=== PATIENT | male | born 1965 | race Caucasian/White ===

== ENCOUNTER 2021-05-22 12:25 | Emergency (ER) | payer OTHER ==
[2021-05-22 14:30] LABS: BASOPHIL 1.1 % (0-2); EOSINOPHIL 1.4 % (0-5); HCT 45.5 % (42.0-52.0); HGB 15.4 g/dl (13.2-18.0); LYMPHOCYTE 34.1 % (15-48); MCH 30.6 pg (25.0-31.0); MCHC 33.8 g/dL (32.0-36.0); MCV 90.3 fL (78.0-100.0); MPV 9.7 fL (6.0-9.5); NEUTROPHIL 53.3 % (41-80); NRBC 0; PLT 221 K/uL (150-400); RBC 5.04 M/uL (4.70-6.00); RDW 12.5 % (11.5-14.0); WBC 7.3 K/uL (4.0-10.5)
[2021-05-22 15:22] LABS: BUN/CREAT RATIO (CALC) 15.8 RATIO; CREATININE 1.14 mg/dL (0.67-1.17); POTASSIUM 4.3 mmol/L (3.5-5.1)
[2021-05-22] MEDS ORDERED: NORVASC 5MG TABL5 MG PO (18:05)
[2021-05-22] MEDS ORDERED: HCTZ12.5 MG PO (18:05)
== END 2021-05-22 18:36 | disposition home or self-care (01) ==
LOC: FER 12:25
PROVIDERS: Nurse Practitioner Family
DX: M79.661 Pain in right lower leg (principal); M79.89 Other specified soft tissue disorders; I10 Essential (primary) hypertension
CPT/HCPCS: 36415; 70450; 80048; 84484; 85025; 85379; 93005; 93971; J3490